=== PATIENT | female | born 1945 | race Caucasian/White ===

== ENCOUNTER → 2019-06-08 | Day surgery (SDC) | payer MEDICARE, MEDICAID ==
[~2019-06-08] VITALS: Ht 154.9 cm; Wt 54.4 kg
[~2019-06-08] MED LIST: BENTYL PO; DEXILANT60 M1 PO; HYDR25T PO; JANUVIA100 MG PO; MELOXICAM15 MG PO; PRILOSEC20 M1 PO; PRISTIQ ER25 MG PO; REQUIP0.25 M1 PO; ROBINUL IM; Synthroid,Lev125 MCG PO; Synthroid,Levo25 MCG PO
--- NOTE | ~2019-06-08 | O ---
[place], [place] OPERATIVE NOTE NAME: GIULIANA JUAREZ UNIT #: [id number] ROOM: DOCTOR: ZAK CHOW MD BIRTHDATE: [birth year] DOS: 06/08/2019 PREOPERATIVE DIAGNOSIS: Cataract, left eye. POSTOPERATIVE DIAGNOSIS: Cataract, left eye. OPERATION: Extracapsular cataract extraction by phacoemulsification with posterior chamber intraocular lens implantation, left eye. ANESTHESIA: Monitored standby. OPERATIVE FINDINGS AND PROCEDURE: 2% Xylocaine topical anesthetic gel was applied to the eye in the preop area. The patient was taken to the operating room and prepped and draped in the standard fashion for sterile intraocular surgery. A time out procedure was performed verifying correct patient, correct site and corrects lens with Flores Chow M.D. The operating microscope was swung into position and the lid speculum was inserted. Using a Malgorzata paracentesis blade, a paracentesis was made through clear cornea. Viscoelastic was used to fill the anterior chamber. Using a metal keratome a 2.4 mm self-sealing clear corneal cataract incision was made temporally at the limbus. Using a pre-bent 25 gauge cystotome needle, a standard continuous curvilinear capsulorrhexis was performed. The anterior capsule was removed with forceps. The lens nucleus was hydrodissected and phacoemulsified in the posterior chamber. Cortical material was removed with the irrigation aspiration hand piece and the posterior capsule was then polished with a curet under irrigation. The posterior chamber and capsular bag were filled with viscoelastic. A posterior chamber intraocular lens manufactured by: [employer], Model #AU00T0, and 19.5 diopters in strength were then inserted into the posterior chamber and within the capsular bag using the lens cartridge and injector system. Viscoelastic was removed using the irrigation aspiration handpiece. The anterior chamber was filled with balanced salt solution through the paracentesis. Both the paracentesis site and cataract incisions were hydrated with BSS and verified to be water-tight and self-sealing. Cefuroxime 1 mg/0.1 mL was injected into the anterior chamber through the paracentesis site. The incision checked to be water-tight using a Weck-Rosalinda sponge. The integrity of the cataract wound and ocular tension were checked. Lid speculum and drapes were removed. The patient was transferred from the operating room to the recovery room in satisfactory condition. [place], [place] OPERATIVE NOTE NAME: GIULIANA JUAREZ UNIT #: [id number] ROOM: DOCTOR: ZAK CHOW MD BIRTHDATE: [birth year] ZAK CHOW MD CM:OPRECORD:OPERATIVE NOTE [id number] ZAK CHOW MD 06/08/19 1028 interface
[2019-06-08 08:06] VITALS: BP 135/54
[2019-06-08 09:30] VITALS: BP 170/74
[2019-06-08 09:45] VITALS: BP 130/62
[2019-06-08 10:00] VITALS: BP 109/48
== END | disposition home or self-care (01) ==
LOC: SDC 06-01 08:45
DX: H25.9 Unspecified age-related cataract (principal); E11.36 Type 2 diabetes mellitus with diabetic cataract; I10 Essential (primary) hypertension; E07.9 Disorder of thyroid, unspecified; F41.9 Anxiety disorder, unspecified; F32.9 Major depressive disorder, single episode, unspecified; H40.9 Unspecified glaucoma; Z87.19 Personal history of other diseases of the digestive system; Z90.49 Acquired absence of other specified parts of digestive tract; Z90.710 Acquired absence of both cervix and uterus; Z98.890 Other specified postprocedural states

== ENCOUNTER → 2019-07-13 | Day surgery (SDC) | payer MEDICARE ==
[~2019-07-13] VITALS: Ht 154.9 cm; Wt 54.4 kg
--- NOTE | ~2019-07-13 | O ---
[place], [place] OPERATIVE NOTE NAME: GIULIANA JUAREZ UNIT #: [id number] ROOM: DOCTOR: ZAK CHOW MD BIRTHDATE: [birth year] DOS: 07/13/2019 PREOPERATIVE DIAGNOSIS: Cataract, right eye. POSTOPERATIVE DIAGNOSIS: Cataract, right eye. OPERATION: Extracapsular cataract extraction by phacoemulsification with posterior chamber intraocular lens implantation, right eye. ANESTHESIA: Monitored standby. LENS INFORMATION: Intraocular lens, [employer], AU00T0, 17.5 diopters, right eye. OPERATIVE FINDINGS AND PROCEDURE: 2% Xylocaine topical anesthetic gel was applied to the eye in the preop area. The patient was taken to the operating room and prepped and draped in the standard fashion for sterile intraocular surgery. A time out procedure was performed verifying correct patient, correct site and corrects lens with Flores Chow M.D. The operating microscope was swung into position and the lid speculum was inserted. Using a Malgorzata paracentesis blade, a paracentesis was made through clear cornea. Viscoelastic was used to fill the anterior chamber. Using a metal keratome a 2.4 mm self-sealing clear corneal cataract incision was made temporally at the limbus. Using a pre-bent 25 gauge cystotome needle, a standard continuous curvilinear capsulorrhexis was performed. The anterior capsule was removed with forceps. The lens nucleus was hydrodissected and phacoemulsified in the posterior chamber. Cortical material was removed with the irrigation aspiration hand piece and the posterior capsule was then polished with a curet under irrigation. The posterior chamber and capsular bag were filled with viscoelastic. A posterior chamber intraocular lens manufactured by: [employer], AU00T0, and 17.5 diopters in strength were then inserted into the posterior chamber and within the capsular bag using the lens cartridge and injector system. Viscoelastic was removed using the irrigation aspiration handpiece. The anterior chamber was filled with balanced salt solution through the paracentesis. Both the paracentesis site and cataract incisions were hydrated with BSS and verified to be water-tight and self-sealing. Cefuroxime 1 mg/0.1 mL was injected into the anterior chamber through the paracentesis site. The incision checked to be water-tight using a Weck-Rosalinda sponge. The integrity of the cataract wound and ocular tension were checked. Lid speculum and drapes were removed. The patient was transferred from the operating room to the recovery room in satisfactory condition. [place], [place] OPERATIVE NOTE NAME: GIULIANA JUAREZ UNIT #: [id number] ROOM: DOCTOR: ZAK CHOW MD BIRTHDATE: [birth year] ZAK CHOW MD CM:OPRECORD:OPERATIVE NOTE [id number] ZAK CHOW MD 07/13/19 0836 interface
[2019-07-13 06:45] VITALS: BP 157/96
[2019-07-13 08:09] VITALS: BP 128/58
[2019-07-13 08:20] VITALS: BP 112/46
[2019-07-13 08:40] VITALS: BP 113/52
== END | disposition home or self-care (01) ==
LOC: SDC 07-08 10:15
DX: H25.811 Combined forms of age-related cataract, right eye (principal); I10 Essential (primary) hypertension; E11.36 Type 2 diabetes mellitus with diabetic cataract; F41.9 Anxiety disorder, unspecified; F32.9 Major depressive disorder, single episode, unspecified; K21.9 Gastro-esophageal reflux disease without esophagitis; E07.9 Disorder of thyroid, unspecified; F17.210 Nicotine dependence, cigarettes, uncomplicated; Z98.890 Other specified postprocedural states; Z79.899 Other long term (current) drug therapy; Z88.5 Allergy status to narcotic agent

== ENCOUNTER → 2023-01-21 | Outpatient (CLI) | payer MEDICARE | END | disposition home or self-care (01) | LOC: US 01:18 | PROVIDERS: ATTEND Nurse Practitioner Family | DX: K76.89 Other specified diseases of liver (principal); E11.9 Type 2 diabetes mellitus without complications ==

== ENCOUNTER → 2023-02-05 | Outpatient (CLI) | payer MEDICARE | END | disposition home or self-care (01) | LOC: MRI 00:17 | PROVIDERS: ATTEND Nurse Practitioner Family | DX: K44.9 Diaphragmatic hernia without obstruction or gangrene (principal); K76.9 Liver disease, unspecified ==

== ENCOUNTER → 2024-02-18 | Outpatient (CLI) | payer OTHER, MEDICAID | END | disposition home or self-care (01) | LOC: RAD 13:21 | PROVIDERS: ATTEND Nurse Practitioner Family | DX: M19.011 Primary osteoarthritis, right shoulder (principal); M16.11 Unilateral primary osteoarthritis, right hip; M25.511 Pain in right shoulder; M25.512 Pain in left shoulder; G89.29 Other chronic pain; M25.551 Pain in right hip; M25.552 Pain in left hip ==

== ENCOUNTER 2024-05-29 14:56 | Emergency (ER) | payer OTHER, MEDICAID ==
[~2024-05-29] VITALS: Ht 152.4 cm; Wt 53.5 kg
[2024-05-29] MEDS ORDERED: Ketorolac Tromethamine 15 MG/ML VIAL IM ONE (17:40)
== END 2024-05-29 17:54 | disposition home or self-care (01) ==
LOC: ED 14:56
DX: S00.83XA Contusion of other part of head, initial encounter (principal); M79.602 Pain in left arm; M25.512 Pain in left shoulder; M25.522 Pain in left elbow; Z88.5 Allergy status to narcotic agent; Z90.49 Acquired absence of other specified parts of digestive tract; Z90.710 Acquired absence of both cervix and uterus; Z98.890 Other specified postprocedural states; V89.2XXA Person injured in unspecified motor-vehicle accident, traffic, initial encounter; Y93.89 Activity, other specified; Y92.410 Unspecified street and highway as the place of occurrence of the external cause; Y99.8 Other external cause status